=== PATIENT | male | born 1960 | race Caucasian/White ===

== ENCOUNTER → 2017-06-12 | Outpatient (CLI) | payer OTHER ==
[~2017-06-12] MED LIST: AVAPRO150 MG
== END | disposition home or self-care (01) ==
LOC: PPH VACUNA 11:13
DX: Z23 Encounter for immunization (principal)

== ENCOUNTER 2018-12-17 10:21 | Outpatient (CLI) | payer OTHER | END 2018-12-17 10:22 | disposition home or self-care (01) | LOC: RAD 10:21 | DX: M54.5 Low back pain (principal) ==

== ENCOUNTER 2018-12-24 14:19 | Outpatient (CLI) | payer OTHER | END 2018-12-24 15:03 | disposition home or self-care (01) | LOC: NUCLEAR 14:19 | DX: M81.0 Age-related osteoporosis without current pathological fracture (principal) ==